=== PATIENT | female | born 1985 | race Caucasian/White ===

== ENCOUNTER 2020-01-21 19:11 | Emergency (ER) | payer BC ==
--- NOTE | 2020-01-21 19:34 | EDM.PDOC ---
ED HPI GENERAL MEDICAL PROBLEM - General Chief Complaint: General Stated Complaint: COUGH,POSSIBLE HERNIA Time Seen by Provider: 01/21/20 19:15 Source of Information: Reports: Patient History Limitations: Reports: No Limitations - History of Present Illness INITIAL COMMENTS - FREE TEXT/NARRATIVE: 34-year-old female presents the emergency room with a chief complaint of left rib pain after coughing. Patient states she is been coughing for 3 weeks coughed and felt her ribs hurting. Patient thinks she has a hernia. Patient states she has had a fever in the past is afebrile at this time. Patient's O2 saturation is normal at this time Duration: Chronic, Getting Worse Location: Reports: Chest Severity: Mild Associated Symptoms: Reports: Chest Pain, Cough Left Upper Abdomen Pain Score (Numeric/FACES): 9 - Related Data Allergies Allergy/AdvReac Type Severity Reaction Status Date / Time No Known Allergies Allergy Verified 02/21/14 09:21 Home Meds: Home Meds . [No Known Home Meds] 01/21/20 [History] ED ROS GENERAL - Review of Systems Review Of Systems: See Below Constitutional: Reports: No Symptoms, Fever HEENT: Reports: No Symptoms Respiratory: Reports: Cough. Denies: Shortness of Breath Cardiovascular: Reports: Chest Pain Endocrine: Reports: No Symptoms GI/Abdominal: Reports: No Symptoms : Reports: No Symptoms Musculoskeletal: Reports: No Symptoms, Other (Pain with coughing) Skin: Reports: No Symptoms Neurological: Reports: No Symptoms Psychiatric: Reports: No Symptoms Hematologic/Lymphatic: Reports: No Symptoms Immunologic: Reports: No Symptoms ED EXAM, GENERAL - Physical Exam Exam: See Below Exam Limited By: No Limitations General Appearance: Alert, WD/WN, No Apparent Distress, Mild Distress Eye Exam: Bilateral Eye: Normal Fundi, Normal Inspection Nose: Normal Inspection, Normal Mucosa Throat/Mouth: Normal Inspection, Normal Lips Head: Atraumatic, Normocephalic Neck: Normal Inspection, Supple Respiratory/Chest: No Respiratory Distress, No Accessory Muscle Use Cardiovascular: Normal Peripheral Pulses, No JVD, No Murmur GI/Abdominal: Normal Bowel Sounds, Soft, Non-Tender, No Distention (Female) Exam: Deferred Rectal (Female) Exam: Deferred Back Exam: Normal Inspection, Full Range of Motion Extremities: Normal Inspection, Normal Range of Motion Neurological: Alert, Oriented, CN II-XII Intact, Normal Cognition, Normal Reflexes Psychiatric: Normal Affect, Normal Mood Skin Exam: Warm, Dry, Intact Lymphatic: No Adenopathy Course - Vital Signs Text/Narrative:: Female presents to the emergency room with a chief complaint of left upper abdominal pain with coughing. Patient states she has pain feels she might have a hernia. Patient denies any trauma. Patient states she has been coughing for over 3 weeks with a chronic cough. CAT scan of the abdomen and pelvis are normal patient's chest x-ray is normal. Patient's labs CBC and electrolytes are also normal with no leukocytosis. I feel this patient has muscle strain from coughing. Patient will be charged home to follow-up with primary care physician. Patient will be placed placed on muscle relaxers and anti-inflammatory Last Recorded V/S: Last Vital Signs Temp 98.9 F 01/21/20 19:23 Pulse 112 H 01/21/20 21:15 Resp 16 01/21/20 21:15 BP 150/90 H 01/21/20 21:15 Pulse Ox 98 01/21/20 21:15 - Orders/Labs/Meds Orders: Active Orders 24 hr Category Date Time Status Sodium Chloride 0.9% [Normal Saline] 1,000 ml Med 01/21/20 19:35 Active IV .Bolus Medication Orders Sodium Chloride (Normal Saline) 1,000 mls @ 1,000 minidrops/hr IV .Bolus ONE Stop: 01/24/20 07:34 Last Admin: 01/21/20 19:58 Dose: 1,000 minidrops/hr Labs: Laboratory Tests 01/21/20 01/21/20 01/21/20 Range/Units 19:46 19:55 19:55 WBC 11.66 H (4.0-11.0) K/uL RBC 4.42 (4.30-5.90) M/uL Hgb 13.8 (12.0-16.0) g/dL Hct 39.9 (36.0-46.0) % MCV 90.3 (80.0-98.0) fL MCH 31.2 (27.0-32.0) pg MCHC 34.6 (31.0-37.0) g/dL RDW Std Deviation 43.1 (28.0-62.0) fl RDW Coeff of Sol 13 (11.0-15.0) % Plt Count 306 (150-400) K/uL MPV 10.00 (7.40-12.00) fL Nucleated RBC % 0.0 /100WBC Nucleated RBCs # 0 K/uL Sodium 138 (136-145) mmol/L Potassium 3.6 (3.5-5.1) mmol/L Chloride 103 (98-107) mmol/L Carbon Dioxide 25.7 (21.0-32.0) mmol/L BUN 10 (7.0-18.0) mg/dL Creatinine 1.0 (0.6-1.0) mg/dL Est Cr Clr Drug Dosing 63.88 mL/min Estimated GFR (MDRD) > 60.0 ml/min Glucose 105 (74-106) mg/dL Calcium 9.3 (8.5-10.1) mg/dL Total Bilirubin 0.3 (0.2-1.0) mg/dL AST 19 (15-37) IU/L ALT 24 (14-63) IU/L Alkaline Phosphatase 104 (46-116) U/L Total Protein 7.3 (6.4-8.2) g/dL Albumin 3.6 (3.4-5.0) g/dL Globulin 3.7 (2.6-4.0) g/dL Albumin/Globulin Ratio 1.0 (0.9-1.6) Urine HCG, Qual NEGATIVE (NEGATIVE) Meds: Medications Generic Name Dose Route Start Last Admin Trade Name Freq PRN Reason Stop Dose Admin Sodium Chloride 1,000 mls @ 1,000 minidrops/hr 01/21/20 19:35 01/21/20 19:58 Normal Saline IV 01/24/20 07:34 1,000 minidrops/hr .Bolus ONE Administration Discontinued Medications Generic Name Dose Route Start Last Admin Trade Name Freq PRN Reason Stop Dose Admin Iopamidol 100 ml 01/21/20 20:50 01/21/20 21:11 Isovue-370 (76%) IVPUSH 01/21/20 20:51 100 ml ONETIME STA Administration Ketorolac Tromethamine 30 mg 01/21/20 21:15 Toradol IVPUSH 01/21/20 21:16 ONETIME ONE Departure - Departure Time of Disposition: 21:51 Disposition: Home, Self-Care 01 Condition: Good Clinical Impression: Muscle strain - Discharge Information Referrals: Nila Hill [Primary Care Provider] - Forms: ED Department Discharge Sepsis Event Note - Evaluation Sepsis Screening Result: No Definite Risk - Focused Exam Vital Signs: Vital Signs Temp Pulse Resp BP Pulse Ox 01/21/20 21:15 112 H 16 150/90 H 98 01/21/20 19:23 98.9 F 125 H 20 161/95 H 96 Date Exam was Performed: 01/21/20 Time Exam was Performed: 21:50 - My Orders Last 24 Hours: My Active Orders 01/21/20 19:35 Sodium Chloride 0.9% [Normal Saline] 1,000 ml IV .Bolus - Assessment/Plan Last 24 Hours: My Active Orders 01/21/20 19:35 Sodium Chloride 0.9% [Normal Saline] 1,000 ml IV .Bolus
[2020-01-21] MEDS ORDERED: Sodium Chloride 0.9% 1,000 ML IV ONE (19:35)
--- NOTE | 2020-01-21 20:10 | CR ---
Chest: AP portable view of the chest was obtained. Comparison: Prior chest x-ray of 12/07/16. Heart size and mediastinum are normal. Lungs are clear with no acute parenchymal change. Bony structures appear grossly intact. Impression: 1. Nothing acute is appreciated on portable chest x-ray. Diagnostic code #1 Study was dictated in MDT
[2020-01-21 20:29] LABS: BLOOD UREA NITROGEN,BUN 10 mg/dL (7.0-18.0); CARBON DIOXIDE,CO2 25.7 mmol/L (21.0-32.0); CHLORIDE,CL 103 mmol/L (98-107); GLUCOSE RANDOM 105 mg/dL (74-106); POTASSIUM,K 3.6 mmol/L (3.5-5.1); SODIUM,NA 138 mmol/L (136-145)
[2020-01-21] MEDS ORDERED: Iopamidol 755 Mg/ML 100 ML Bottle IVPUSH STA (20:50)
[2020-01-21] MEDS ORDERED: Ketorolac 30 MG/ML SDV IVPUSH ONE (21:15)
--- NOTE | 2020-01-21 21:31 | CT ---
INDICATION: Left upper quadrant pain TECHNIQUE: CT abdomen and pelvis acquired with IV contrast. 100 mL of Isovue 370 administered. COMPARISON: None available FINDINGS: Lower chest: A 3 mm right basilar nodule on image 1, likely post inflammatory in a patient of this age, without history of neoplasm. A small asymmetrical density in the right breast, at least partially related to glandular tissue. Liver: Unremarkable. Spleen: Unremarkable. Pancreas: Unremarkable. Gallbladder and bile ducts: Unremarkable. Adrenal glands: Unremarkable. Kidneys: Unremarkable. GI tract: Unremarkable. Appendix is normal. Vascular structures: Unremarkable. Lymph nodes: Unremarkable. Miscellaneous: No free air or significant free fluid. Pelvic Organs: No discrete uterine or bladder abnormality seen. A 1.4 cm dominant right ovarian follicle. A tampon in the vagina. Bones: Unremarkable for age. IMPRESSION: No evidence of an acute process in the abdomen or pelvis. A small asymmetrical density in the right breast is at least partially related to glandular tissue. Correlate with formal breast evaluation. Dictated by Milton Dumont MD @ 01/21/2020 9:29:08 PM Please note that all CT scans at this facility use dose modulation, iterative reconstruction, and/or weight-based dosing when appropriate to reduce radiation dose to as low as reasonably achievable. Dictated by: Milton Dumont MD @ 01/21/2020 21:29:48 (Electronically Signed)
== END 2020-01-21 22:14 | disposition home or self-care (01) ==
LOC: MW.ED 19:11
DX: S29.011A Strain of muscle and tendon of front wall of thorax, initial encounter (principal); X58.XXXA Exposure to other specified factors, initial encounter
CPT/HCPCS: 36415; 71045; 74177; 80053; 81025; 85027; 96360; 96361; 99284; J7030; Q9967; 99283